=== PATIENT | male | born 1970 | race Caucasian/White ===

== ENCOUNTER 2017-04-14 13:06 | Day surgery (SDC) | payer OTHER ==
--- NOTE | 2017-04-13 10:44 | PCM.ANEPRE ---
Anesthesia Pre-Op Review Reason for Review: STOP BANG 6/8 Anesthesia Recommendations: Proceed with Procedure Additional Comments 46 yo male with SOTP BANG 68 scheduled for umbilical hernia repair. Low risk surgery. Use WONG precautions. Ok to proceed Chart Reviewed by: Manjinder Alanis MD Apr 13, 2017 10:44
[~2017-04-14] VITALS: Ht 177.8 cm; Wt 102.1 kg
[2017-04-14] VITALS (9 sets, daily range): BP systolic 118–134; BP diastolic 80–99; PULSE 60–76; RESP 10–17; O2SAT 97–99
[~2017-04-14 13:06] MED LIST: CeFAZolin 2 Gm/50 mL D5W IV Premix IV ONE
[2017-04-14] MEDS ORDERED: Propofol 10,000 mCg/mL 20 mL Inj ONE (13:07)
[2017-04-14] MEDS ORDERED: fentaNYL-PF 50 mCg/mL 2 mL Inj ONE (13:07)
[2017-04-14] MEDS ORDERED: Ondansetron 2 mg/mL 2 mL Inj ONE (13:07)
[2017-04-14] MEDS ORDERED: Phenylephrine/NS 100 mCg/mL 10 mL Syringe IVPUSH ONE (13:07)
[2017-04-14] MEDS ORDERED: Lidocaine PF 1% 30 mL Inj ONE (13:07)
[2017-04-14] MEDS ORDERED: CeFAZolin Inj 2 gm / 50mL D5W IV ONE (13:09)
[2017-04-14] MEDS: Lactated Ringer's 1,000 ML IV SCH ×2 (13:56→14:37)
[2017-04-14] MEDS ORDERED: Lactated Ringer's 1,000 ML IV SCH (14:27)
[2017-04-14] MEDS ORDERED: Lactated Ringer's 500 ML IV PRN (14:27)
--- NOTE | 2017-04-14 14:27 | PCM.HPANE ---
Patient Data Date of Service: Apr 14, 2017 Surgeon Admitting Provider: Attending Provider:Jeffery Cloud MD Primary Care Physician:Sharif William DO Other Provider:Sylvia Tidwell Anesthesia Reason for Visit Umbilical Hernia Ht/WT & BMI Height (Feet): 5 Height (Inches): 10.00 Weight (Kilograms): 102.058 Body Mass Index 32.00 Allergies Coded Allergies: No Known Allergies (Unverified , 04/13/17) Past Anesthesia History Anesthesia History: Denies:: Fam Anesthesia Reaction, Fam Malignant Hypertherm Diabetes History Hx Diabetes?: No MRSA MRSA: No Medications Home Meds Incl Beta Lianne: No No Active Prescriptions or Reported Meds History History of ENT Problems?: No HEENT History: Denies:: Abnormal Airway Difficult Intubation Denture Type: None Teeth Condition: Within Normal Limits Hx of Heart Problems?: No Cardiovascular History: Denies:: Heart Murmur Hypertension Hx of Respiratory Problem?: Yes Respiratory History: Denies:: Use of C-PAP Machine (SNORES) Hx Neurologic Problems?: No Hx of GI Problems?: Yes Other GI Pertinent History: UMBILICAL HERNIA=CURRENT PROBLEM C/OF INTERMITTANT UMBILICAL ABD PAIN Hx of Problems?: No HX of Peritoneal Dialysis: No Male Hx: Denies:: Prostate Problems Scrotal Mass Testicular Surgery Skin History: Denies:: History Skin Disorders? Pressure Ulcers Hx Musculoskeletal Problems?: No Hx of Psycho/Social Problems?: No Hx Surgeries?: No Hx Any Other Health Problems?: No Other History: Denies:: Cancer Endocrine Disease Hospitalization Thyroid Disease Hx Diabetes: No Hx Alcohol Use: Yes (OCCAS)Hx Substance Use: NoHave You Smoked inLast 12 mo: No Stop/Bang Treated for Sleep Apnea?: No Do You Have a CPAP Machine?: No S-Snoring: Do You Snore Loudly: Yes T-Tired: feel tired, fatigued: Yes O-Obsered: Observed not breath: Yes P-Blood Pressure: treated: No B- Body Mass Index > 35 kg/m2: Yes A- Age over 50: No N- Neck Large Circumference: Yes G- Gender Male: Yes WONG Total Score: 6 WONG Risk Assessment: High Risk, =/>3 Yes WONG Category 4 OutPt Procedure: Yes Risk Assessment Category Category 1A: Patient has history of documented sleep apnea, and HAS NOT received any narcotic, sedative or anesthesia administration during this stay. Category 1B: Patient has history of documented sleep apnea, and HAS received any narcotic , sedative or anesthesia administration during this stay Category 2: Patient has SUSPECTED Obstructive Sleep Apnea, and HAS received any narcotic , sedative or anesthesia administration during this stay. Category 3: Patient has SUSPECTED Obstructive Sleep Apnea and HAS NOT received narcotic, sedative or anesthesia administration during this stay. Category 4: Outpatient in Procedural Areas with known sleep apnea or who screen positive for High Risk via the STOP/BANG questionnaire. Exam Exam Vital Signs Vital Signs Date Time Temp Pulse Resp B/P Pulse Ox O2 Delivery O2 Flow Rate FiO2 04/14/17 13:58 36.4 64 16 123/95 98 Room Air General Appearance: Alert, Oriented X3, Cooperative HEENT/AIRWAY: MP 2, Neck Movement, Mouth Opening (Wide) Lungs: Clear to Auscultation, Normal Air Movement Heart: Regular Rate/Rhythm, Normal S1, Normal S2 Meds/Labs/Diagnostics Admission Meds Current Medications Lactated Ringer's (Lr) 1,000 ml @ 120 mls/hr [id number] IV Last administered on t 13:56; Start 04/14/17 at 05:00; Stop 04/14/17 at 13:19; Status DC Plan Impression Patient chart reviewed, patient interviewed and anesthestic plan with risks, benefits, and alternatives discussed, and informed consent obtained. NPO per Anesth. Guidelines: Yes ASA Physical Status: ASA2 Mod Systemic Disease Anesthetic Plan: GA Bene/Risks/Altern/Consents: Yes HP Complete Prior to Induction: Yes Caleb Hartley MD Apr 14, 2017 14:27
[2017-04-14] MEDS ORDERED: Labetalol 5 mg/mL 4 mL Inj IV PRN (14:30)
[2017-04-14] MEDS ORDERED: Dexamethasone 4 mg/mL Inj IVPUSH PRN (14:30)
[2017-04-14] MEDS ORDERED: Phenylephrine 10,000 mCg/mL Inj IVPUSH PRN (14:30)
[2017-04-14] MEDS ORDERED: Ondansetron 2 mg/mL 2 mL Inj IVPUSH PRN (14:30)
[2017-04-14] MEDS ORDERED: EPHEDrine Sulfate 50 mg/mL Inj IVPUSH PRN (14:30)
[2017-04-14] MEDS ORDERED: MetoCLOpramide 5 mg/mL 2 mL Inj IVPUSH PRN (14:30)
[2017-04-14] MEDS ORDERED: Atropine 0.4 mg/mL Inj IVPUSH PRN (14:30)
[2017-04-14] MEDS ORDERED: hydrALAZINE 20 mg/mL Inj IVPUSH PRN (14:30)
[2017-04-14] MEDS ORDERED: HYDROmorphone 1 mg/mL Inj IVPUSH PRN (14:30)
[2017-04-14] MEDS ORDERED: Bupivacaine-MPF 0.25% 30 mL Inj INFILTRATE ONE (14:37)
--- NOTE | 2017-04-14 15:34 | PCM.ANEP1 ---
Post Anesthesia PACU Phase 1 Assessment Date of Service: Apr 14, 2017 Vital Signs Vital Signs Date Time Temp Pulse Resp B/P Pulse Ox O2 Delivery O2 Flow Rate FiO2 04/14/17 15:25 33.6 76 10 123/88 99 Simple Mask 8 04/14/17 13:58 36.4 64 16 123/95 98 Room Air Anesthetic Administered: GA Level of Alertness: Awake, talking MANRIQUEZ's with Equal Strength: Yes Pain: Yes Nausea or Vomiting: No CV Function & Hydration Stable: Yes Airway Device: Oxygen Delivery: Room Air Lungs: Normal Air Movement PACU Phase 2 Assessment Complications: No Follow up Care: No Patient Instructions Provided: N/A Caleb Hartley MD Apr 14, 2017 15:34
[2017-04-14] MEDS: fentaNYL-PF 50 mCg/mL 2 mL Inj IVPUSH PRN ×2 (16:15→16:25)
[2017-04-14] MEDS: oxyCODONE-Acetamin 5-325 mg Tablet PO PRN (16:15)
--- NOTE | 2017-04-15 00:18 | OP ---
[address] [address] OPERATIVE REPORT PATIENT: YOVANA MERINO : 1970 MR#: [id number] ADMIT: 04/14/2017 JOB ID: [id number] DATE OF SURGERY: 04/14/2017 ANESTHESIA: General. PREOPERATIVE DIAGNOSIS(ES): Incarcerated umbilical hernia. POSTOPERATIVE DIAGNOSIS(ES): Incarcerated umbilical hernia (incarcerated with fat). OPERATION: Open repair of incarcerated umbilical hernia using mesh. SURGEON: Jeffery Cloud MD. SHEET METAL ROOFER: Alhaji Angel PA-C (the automotive parts counter assistant was required for the safe and timely completion of case). COMPLICATIONS: None. ESTIMATED BLOOD LOSS: Less than 5 mL. CONDITION: Satisfactory. SPECIMEN: None. FINDINGS: There was an approximately 1.2 cm fascial defect. The hernia had incarcerated preperitoneal fat. This was repaired with 4.3 cm Ventralex mesh. INDICATIONS/SIGNIFICANT HISTORY: The patient is a 46-year-old man who over the past four years has had periodic umbilical pain associated with a hernia. He eventually decided to seek treatment for this and was referred to me and elected to undergo repair of hernia. OPERATIVE TECHNIQUE: The patient was taken to the operating room and placed in supine position. General anesthesia was administered and perioperative antibiotics were given. The abdomen was prepped and draped in standard surgical fashion. A procedure pause was performed. A curvilinear infraumbilical incision was made and dissection carried down through skin and subcutaneous tissue. The umbilical stalk was circumferentially dissected and then opened to reveal the hernia. The stalk was then completely transected. There was incarcerated fat. After some time I was able to get this completely reduced. I then cleared the posterior surface of the fascia. The fascial defect was approximately 1.2 cm. I then inserted a 4.3 cm Ventralex patch into an underlay position. This was secured in place by incorporating into a horizontal closure with interrupted 2-0 PDS sutures. The umbilicus was then tacked down to the fascia using 3-0 PDS. Skin was closed with 3-0 PDS deep dermal followed by running 4-0 Monocryl. Local anesthetic was injected prior to completion of the case. The entire procedure was well tolerated without complication.
== END 2017-04-14 23:59 | disposition home or self-care (01) ==
LOC: SAS 13:06
PROVIDERS: ATTEND General Practice
DX: K42.0 Umbilical hernia with obstruction, without gangrene (principal); F17.220 Nicotine dependence, chewing tobacco, uncomplicated
CPT/HCPCS: 49587; C1781; J0690; J1170; J2250; J2370; J2405; J3010; J7120